=== PATIENT | female | born 1995 | race African-American/Black ===

== ENCOUNTER 2016-12-01 13:40 | Emergency (ER) | payer SELFPAY ==
[~2016-12-01] VITALS: Ht 157.5 cm; Wt 74.8 kg
[~2016-12-01 13:40] MED LIST: BENADRYL25 MG ORAL; CYCLOBENZAPRINE10 MG ORAL; IBUPROFEN600 MG ORAL; NKM; PREDNISONE20 MG ORAL; TYLENOL325 MG ORAL
[2016-12-01 14:00] VITALS: BP 125/84
[2016-12-01] MEDS ORDERED: AMOXICILLIN500 MG ORAL (14:46)
[2016-12-01 14:55] VITALS: BP 121/79
[2016-12-01 14:57] VITALS: BP 121/79
--- NOTE | 2016-12-01 16:28 | Emergency Room Report ---
History of Present Illness General Chief Complaint: Flu Like Symptoms Source: Patient Present Illness HPI The patient is a 21-year-old female presenting with sore throat, subjective fever, and productive cough for the past 3 days. The sore throat as described as a 7/10 sharp sensation which is worse with coughing and swallowing. The patient denies any sick contacts or recent travel. The patient denies nausea, vomiting, chills, night sweats, hemoptysis. The patient also mentioned that her last normal menstrual period was more than 2 months prior Allergies: Coded Allergies: No Known Allergies (Unverified , 02/29/16) Patient History Past Medical History: see triage record Pertinent Family History: none Now: No Reviewed Nursing Documentation: PMH: Agreed, PSxH: Agreed Nursing Documentation-PMH Past Medical History: No Stated History Hx Gastrointestinal Problems: Yes - bowel obstruction Review of Systems All Other Systems: negative except mentioned in HPI Physical Exam Vital Signs Date Time Temp Pulse Resp B/P Pulse Ox O2 Delivery O2 Flow Rate FiO2 12/01/16 13:45 98.6 90 20 125/84 100 Room Air Sp02 EP Interpretation: reviewed, normal General Appearance: no apparent distress, alert, GCS 15, non-toxic Head: normocephalic, atraumatic Eyes: bilateral eye PERRL, bilateral eye normal inspection ENT: hearing grossly normal, no angioedema, normal voice, TMs + canals normal, tonsillar swelling, pharyngeal erythema, tonsillar exudate Respiratory: chest non-tender, lungs clear, normal breath sounds, no wheezing, speaking full sentences Cardiovascular #1: regular rate, rhythm, no edema Gastrointestinal: normal bowel sounds, non tender, soft, non-distended, no guarding, no rebound Genitourinary: normal inspection, no CVA tenderness Musculoskeletal: back normal, gait/station normal, normal range of motion, non- tender, calf tenderness Neurologic: alert, oriented x3, responsive, motor strength/tone normal, sensory intact, speech normal Psychiatric: judgement/insight normal, memory normal, mood/affect normal, no suicidal/homicidal ideation Skin: normal color, no rash, warm/dry, well hydrated Medical Decision Making PA Attestation Dr. Tsang is my supervising physician. Patient management was discussed with my supervising physician Diagnostic Impression: Primary Impression: Pharyngitis, acute ER Course The patient is a 21-year-old female presenting with sore throat, subjective fever, and productive cough for the past 3 days. Differential diagnosis include but not limited to pharyngitis, sinusitis, AOM, bronchitis, PNA PE: No apparent distress. Vitals WNL No TTP over maxillary or frontal sinuses. Lungs CTA bilat. No wheezing. No accessory muscle use. Heart: RRR, no abnormal heart sounds Ears: external auditory canal clear. Non erythematous. Bilat TM intact. Cone of light present bilat. No bulging of TM. No serous fluid seen. + nasal D/C + anterior cervical lymphad There is bilateral tonsillar edema and erythema. White exudate is seen. Uvula midline urine is negative. The patient will be discharged home with a prescription for amoxicillin and will follow up with primary care physician. ER precautions are given Laboratory Tests Test 12/01/16 14:27 Urine HCG, Qualitative Negative Lab Results Impression Negative Last Vital Signs Date Time Temp Pulse Resp B/P Pulse Ox O2 Delivery O2 Flow Rate FiO2 12/01/16 14:57 98.6 78 20 121/79 100 Room Air Status: improved Disposition: HOME, SELF-CARE Condition: Improved Scripts Amoxicillin* (AMOXIL*) 500 Mg Capsule 500 MG ORAL Q12HR, #20 CAP Prov: GABRIELLA VIVAR 12/01/16 Patient Instructions: Pharyngitis Additional Instructions: I discussed my findings with the patient. All questions and concerns have been answered. Treatment and medication compliance have been addressed. I advised the patient that they need to follow up with PMD in 3-5 days. Return to ED if pain remains or worsens, cough worsens or remains, you notice blood in your sputum, you notice wheezing, you experience a fever, or if needed for any reason. Patient verbalized understanding of discharge instructions. GABRIELLA VIVAR Dec 01, 2016 16:28
== END 2016-12-01 14:59 | disposition home or self-care (01) ==
LOC: EMR 14:05
DX: J02.9 Acute pharyngitis, unspecified (principal)
CPT/HCPCS: 81025; 99282

== ENCOUNTER 2017-01-16 18:54 | Emergency (ER) | payer SELFPAY ==
[~2017-01-16] VITALS: Ht 157.5 cm; Wt 75.3 kg
[~2017-01-16 18:54] MED LIST changes: +AMOXICILLIN500 MG ORAL
[2017-01-16 19:10] VITALS: BP 139/90
[2017-01-16 20:49] LABS: EOSINOPHILS % (AUTO) 1.7 % (0.0-3.0); LYMPHOCYTES % (AUTO) 31.9 % (20.0-45.0); MEAN CORPUSCULAR HEMOGLOBIN 30.8 PG (27.0-31.0); MEAN CORPUSCULAR HGB CONC 33.2 G/DL (32.0-36.0); MEAN CORPUSCULAR VOLUME 93 FL (80-99); MEAN PLATELET VOLUME 7.5 FL (6.5-10.1); MONOCYTES % (AUTO) 11.2 % (1.0-10.0); NEUTROPHILS % (AUTO) 53.2 % (45.0-75.0); PLATELET COUNT 246 K/UL (150-450); RED BLOOD COUNT 4.16 M/UL (4.20-5.40); RED CELL DISTRIBUTION WIDTH 12.3 % (11.6-14.8); WHITE BLOOD COUNT 5.2 K/UL (4.8-10.8)
[2017-01-16 20:50] LABS: APPEARANCE,URINE CLEAR; KETONES,URINE NEGATIVE (NEGATIVE); LEUKOCYTE ESTERASE ,URINE NEGATIVE (NEGATIVE); NITRITE,URINE NEGATIVE (NEGATIVE); PH,URINE 6.5 (4.5-8.0); PROTEIN,URINE NEGATIVE (NEGATIVE); UROBILINOGEN,URINE NORMAL MG/DL (0.0-1.0)
[2017-01-16 20:58] LABS: PROTHROMBIN TIME 10.2 SEC (9.30-11.50)
[2017-01-16 21:15] LABS: ALANINE AMINOTRANSFERASE 22 U/L (3-33); ALBUMIN/GLOBULIN RATIO 1.3 (1.0-2.7); ANION GAP 14 (5-15); ASPARTATE AMINO TRANSFERASE 23 U/L (5-40); CALCIUM 9.7 mg/dL (8.6-10.2); CARBON DIOXIDE 26 mEQ/L (20-30); CHLORIDE 101 mEQ/L (98-107); GLOMERULAR FILTRATION RATE > 60 mL/min (>60); HEMOLYSIS 7; LIPASE 22 U/L (< 60); SODIUM 141 mEQ/L (135-145); TOTAL PROTEIN 7.6 g/dL (6.6-8.7)
[2017-01-16 21:31] VITALS: BP 129/84
[2017-01-16 21:45] VITALS: BP 129/84
[2017-01-16] MEDS ORDERED: TRAMADOL HCL50 MG ORAL (22:42)
[2017-01-16] MEDS ORDERED: IBUPROFEN600 MG ORAL (22:42)
--- NOTE | 2017-01-17 04:25 | Emergency Room Report ---
History of Present Illness General Chief Complaint: Abdominal Pain Source: Patient Present Illness [facility] Patient presents with several months of RLQ pain worsened 2-3 days. Last period was September. No vag d/c. No fevers. Had been seen in urgent care with negative test last week. Still continues with pain. No NVD, rashes, vaginal discharge, joint pain, headache, SOB, cough, chest pain , extremity pain. 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 Reviewed Nursing Documentation: PMH: Agreed, PSxH: Agreed Nursing Documentation-PMH Hx Gastrointestinal Problems: Yes - bowel obstruction Review of Systems All Other Systems: negative except mentioned in HPI Physical Exam Vital Signs Date Time Temp Pulse Resp B/P Pulse Ox O2 Delivery O2 Flow Rate FiO2 01/16/17 19:01 98.1 87 20 139/90 95 Room Air Sp02 EP Interpretation: reviewed, normal General Appearance: well appearing, no apparent distress, GCS 15 Head: normocephalic Eyes: bilateral eye PERRL, bilateral eye normal inspection ENT: moist mucus membranes Neck: supple Respiratory: lungs clear, normal breath sounds Cardiovascular #1: regular rate, rhythm Cardiovascular #2: 2+ radial (R) Gastrointestinal: normal inspection, normal bowel sounds, soft, no mass, non- distended, no rebound, tenderness - suprapubic/RLQ Genitourinary: no CVA tenderness, deferred - for ultrasound Musculoskeletal: back normal, gait/station normal, normal range of motion Neurologic: alert, oriented x3 Psychiatric: mood/affect normal Skin: normal inspection, warm/dry Medical Decision Making Diagnostic Impression: Primary Impression: Ovarian mass, right ER Course Patient with RLQ pain and irreg periods. Ddx; ectopic, ovarian cyst, appi, IUP , UTI amongst others. Emergent eval with labs, IV, U/S, preg test. Patient declines analgesia at this time. Labs with negative , clear urine. Delay for ultrasound. Patient requests analgsia. Motrin given. Patient improved. See ultrasound below. Discussed preliminary findings with patient. Patient stable for outpatient observation and treatment. Laboratory Tests Test 01/16/17 20:25 White Blood Count 5.2 K/UL (4.8-10.8) Red Blood Count 4.16 M/UL (4.20-5.40) L Hemoglobin 12.8 G/DL (12.0-16.0) Hematocrit 38.5 % (37.0-47.0) Mean Corpuscular Volume 93 FL (80-99) Mean Corpuscular Hemoglobin 30.8 PG (27.0-31.0) Mean Corpuscular Hemoglobin Concent 33.2 G/DL (32.0-36.0) Red Cell Distribution Width 12.3 % (11.6-14.8) Platelet Count 246 K/UL (150-450) Mean Platelet Volume 7.5 FL (6.5-10.1) Neutrophils (%) (Auto) 53.2 % (45.0-75.0) Lymphocytes (%) (Auto) 31.9 % (20.0-45.0) Monocytes (%) (Auto) 11.2 % (1.0-10.0) H Eosinophils (%) (Auto) 1.7 % (0.0-3.0) Basophils (%) (Auto) 2.0 % (0.0-2.0) Prothrombin Time 10.2 SEC (9.30-11.50) Prothrombin Time INR 1.0 (0.9-1.1) PTT 28 SEC (23-33) Urine Color Pale yellow Urine Appearance Clear Urine pH 6.5 (4.5-8.0) Urine Specific [place] 1.010 (1.005-1.035) Urine Protein Negative (NEGATIVE) Urine Glucose (UA) Negative (NEGATIVE) Urine Ketones Negative (NEGATIVE) Urine Occult Blood Negative (NEGATIVE) Urine Nitrite Negative (NEGATIVE) Urine Bilirubin Negative (NEGATIVE) Urine Urobilinogen Normal MG/DL (0.0-1.0) Urine Leukocyte Esterase Negative (NEGATIVE) Urine HCG, Qualitative Negative Sodium Level 141 mEQ/L (135-145) Potassium Level 4.0 mEQ/L (3.4-4.9) Chloride Level 101 mEQ/L (98-107) Carbon Dioxide Level 26 mEQ/L (20-30) Anion Gap 14 (5-15) Blood Urea Nitrogen 10 mg/dL (7-23) Creatinine 1.0 mg/dL (0.5-0.9) H Estimate Glomerular Filtration Rate > 60 mL/min (>60) Glucose Level 89 mg/dL (74-106) Calcium Level 9.7 mg/dL (8.6-10.2) Total Bilirubin 0.5 mg/dL (0.0-1.2) Aspartate Amino Transferase (AST) 23 U/L (5-40) Alanine Aminotransferase (ALT) 22 U/L (3-33) Alkaline Phosphatase 72 U/L (35-104) Total Protein 7.6 g/dL (6.6-8.7) Albumin 4.3 g/dL (3.5-5.2) Globulin 3.3 g/dL Albumin/Globulin Ratio 1.3 (1.0-2.7) Lipase 22 U/L (< 60) CT/MRI/US Diagnostic Results CT/MRI/US Diagnostic Results : Imaging Test Ordered: pelvic ultrasound Impression [id number] R ovary. Non-hemorrhagic. Suggests dermoid. Impression: 4.7 cm echogenic right ovarian mass, most likely a dermoid. Normal uterus Normal left ovary Last Vital Signs Date Time Temp Pulse Resp B/P Pulse Ox O2 Delivery O2 Flow Rate FiO2 01/16/17 21:45 98.1 89 20 129/84 99 Room Air Status: improved Disposition: HOME, SELF-CARE Condition: Improved Scripts Tramadol Hcl* (ULTRAM*) 50 Mg Tablet 50 MG ORAL Q6H Y for For Pain, #10 TAB 0 Refills Prov: Lei Kim M.D. 01/16/17 Ibuprofen* (MOTRIN*) 600 Mg Tablet 600 MG ORAL Q6H Y for For Pain, #20 TAB Prov: Lei Kim M.D. 01/16/17 Patient Instructions: Abdominal Pain, Adult, Pelvic Mass Additional Instructions: You need to follow up with an glass sander. There is enlargement of the ovary on the right (ultrasound). OK to take tylenol. Lei Kim M.D. Jan 17, 2017 04:25
--- NOTE | 2017-02-03 10:26 | Diagnostic Imaging Report ---
Indication: Right pelvic pain x1 day Technique: Transabdominal and transvaginal images Comparison: None Findings: Exam is limited as the technologist impression is not available, despite repeated attempts to obtain it. The uterus is retroverted, measures 7.2 cm length of 4.1 cm AP. Endometrium measures 9 mm thick. No gross myometrial abnormality. Right ovary demonstrates an echogenic mass that measures 4.7 cm in diameter. The left ovary measures 4.6 cm in length. No free cul-de-sac fluid Impression: 4.7 cm echogenic right ovarian mass, most likely a dermoid. Normal uterus Normal left ovary
== END 2017-01-16 21:45 | disposition home or self-care (01) ==
LOC: EMR 20:02
DX: D27.0 Benign neoplasm of right ovary (principal)
CPT/HCPCS: 36415; 76856; 80053; 81003; 81025; 83690; 85025; 85610; 85730; 96374

== ENCOUNTER 2017-02-11 16:07 | Emergency (ER) | payer MEDICAID ==
[~2017-02-11] VITALS: Ht 157.5 cm; Wt 74.8 kg
[~2017-02-11 16:07] MED LIST changes: +TRAMADOL HCL50 MG ORAL
[2017-02-11 16:30] VITALS: BP 154/83
[2017-02-11] MEDS ORDERED: Norco 5mg/325mg tab ORAL ONE (16:30)
--- NOTE | 2017-02-11 16:40 | Emergency Room Report ---
History of Present Illness General Chief Complaint: Skin Rash/Abscess Source: Patient Present Illness HPI 21-year-old female presents emergency department complaining of pain, swelling, erythema and tenderness to the left axilla x3 days. Patient states her pain is 10 out of 10 in severity and is exacerbated upon palpation or movement of her left arm. She denies nausea, vomiting, fevers, chills. She denies trauma or fall. Patient states that she has had abscesses in the axilla in the past however never to this extent. She states she does not see a PCP regularly. She states she is up-to-date with vaccinations. Denies CP, Palpitations, LOC, AMS, dizziness, Changes in Vision, Sensation, paresthesias, or a sudden severe headache. Allergies: Coded Allergies: No Known Allergies (Unverified , 02/29/16) Patient History Past Medical History: see triage record Past Surgical History: none Pertinent Family History: none Now: No Immunizations: UTD Reviewed Nursing Documentation: PMH: Agreed, PSxH: Agreed Nursing Documentation-PMH Past Medical History: No Stated History Hx Gastrointestinal Problems: Yes - bowel obstruction Review of Systems All Other Systems: negative except mentioned in HPI Physical Exam Vital Signs Date Time Temp Pulse Resp B/P Pulse Ox O2 Delivery O2 Flow Rate FiO2 02/11/17 16:14 98.4 107 21 154/83 98 Sp02 EP Interpretation: reviewed, abnormal - pt is tachycardic at 107 General Appearance: alert, GCS 15, non-toxic, mild distress Head: normocephalic, atraumatic Eyes: bilateral eye PERRL, bilateral eye normal inspection ENT: hearing grossly normal, normal pharynx, no angioedema, normal voice Neck: full range of motion, supple/symm/no masses Respiratory: lungs clear, normal breath sounds, speaking full sentences Cardiovascular #1: regular rate, rhythm, no edema Musculoskeletal: back normal, gait/station normal, normal range of motion, tender - TTP to the left axilla, limited FROM of the left arm due to pain. Neurologic: alert, oriented x3, responsive, motor strength/tone normal, sensory intact, speech normal Psychiatric: judgement/insight normal, memory normal, mood/affect normal, no suicidal/homicidal ideation Skin: normal color, no rash, warm/dry, well hydrated, other - welling, erythema and tenderness, and induration to the left axilla, tunneling noted approximately 3 inches, consistent with hidradenitis supperativa Lymphatic: no adenopathy Medical Decision Making PA Attestation Dr. Duffy is my supervising Physician whom patient management has been discussed with. Diagnostic Impression: Primary Impression: Hidradenitis suppurativa of left axilla ER Course 21-year-old female presents emergency department complaining of pain, swelling, erythema and tenderness to the left axilla x3 days. Patient states her pain is 10 out of 10 in severity and is exacerbated upon palpation or movement of her left arm. She denies nausea, vomiting, fevers, chills. She denies trauma or fall. Patient states that she has had abscesses in the axilla in the past however never to this extent. She states she does not see a PCP regularly. She states she is up-to-date with vaccinations. Ddx considered but are not limited to cellulitis, abscess, cystic acne, necrotizing fasciitis, insect bite, hidradenitis suppurativa, LAD Vital signs: are WNL, pt. is afebrile H&PE are most consistent with Hidradenitis suppurativa ORDERS: none required at this time, the diagnosis is clinical ED INTERVENTIONS: - 5mg [place] PO -d/w pt. that due to extend of tunneling noted I & D is not advised, will treat with PO abx, recommend warm compresses. and follow up with PCP. d/w pt that usually recurrent infections require surgical removal but that is determined by PCP and surgeon. DISCHARGE: At this time pt. is stable for d/c to home. Will provide printed patient care instructions, and any necessary prescriptions. Care plan and follow up instructions have been discussed with the patient prior to discharge. Last Vital Signs Date Time Temp Pulse Resp B/P Pulse Ox O2 Delivery O2 Flow Rate FiO2 02/11/17 16:14 98.4 107 21 154/83 98 Disposition: HOME, SELF-CARE Condition: Stable Scripts Ibuprofen* (MOTRIN*) 400 Mg Tablet 400 MG ORAL THREE TIMES A DAY, #30 TAB 0 Refills Prov: Hazel Steven P.A. 02/11/17 Hydrocodone Bit/Acetaminophen 5-325* (NORCO 5-325 TABLET*) 1 Each Tablet 1 TAB ORAL Q8HR Y for For Pain, #10 TAB Prov: Hazel Steven 02/11/17 Doxycycline Hyclate* (VIBRAMYCIN*) 100 Mg Capsule 100 MG ORAL EVERY 12 HOURS for 14 Days, #28 CAP 0 Refills Prov: Hazel Steven 02/11/17 Referrals: [facility],REFERRING (PCP) Patient Instructions: Hidradenitis Suppurativa Additional Instructions: Take medications as directed. Follow up with PCP in 3 days Return sooner to ED if new symptoms occur, or current symptoms become worse. Do not drink alcohol, drive, or operate heavy machinery while taking [place] as this may cause drowsiness. - Please note that this Emergency Department Report was dictated using [employer] and back forger technology software, occasionally this can lead to erroneous entry secondary to interpretation by the dictation equipment. Hazel Steven Feb 11, 2017 16:40
[2017-02-11] MEDS ORDERED: VIBRAMYCIN100 MG ORAL (17:45)
[2017-02-11] MEDS ORDERED: IBUPROFEN400 MG ORAL (17:45)
[2017-02-11] MEDS ORDERED: NORCO 5-325 TA1 EAC1 ORAL (17:45)
[2017-02-11 17:46] VITALS: BP 144/92
== END 2017-02-11 18:01 | disposition home or self-care (01) ==
LOC: EMR 16:30
DX: L73.2 Hidradenitis suppurativa (principal)
CPT/HCPCS: 99284